=== PATIENT | female | born 1980 | race Caucasian/White ===

== ENCOUNTER 2017-05-15 17:49 | Emergency (ER) | payer OTHER ==
[~2017-05-15] VITALS: Ht 165.1 cm; Wt 81.6 kg
[2017-05-15 17:50] VITALS: BP_SYST 110
[2017-05-15 20:08] VITALS: BP_SYST 112
== END 2017-05-15 20:42 ==
LOC: SED 17:49
DX: S40.012A Contusion of left shoulder, initial encounter (principal); M54.2 Cervicalgia; R07.89 Other chest pain; M25.562 Pain in left knee; M25.561 Pain in right knee; V89.2XXA Person injured in unspecified motor-vehicle accident, traffic, initial encounter; Y93.89 Activity, other specified; Y92.488 Other paved roadways as the place of occurrence of the external cause; Y99.8 Other external cause status
CPT/HCPCS: 71010; 72040-TC; 72100-TC; 73560-TC; 81025; 99284